=== PATIENT | female | born 1985 | race Caucasian/White ===

== ENCOUNTER 2019-04-25 03:15 | Inpatient (IN) | payer BC ==
[~2019-04-25] VITALS: Ht 170.2 cm; Wt 76.3 kg
[2019-04-28 08:10] VITALS: BP 139/87
== END 2019-04-28 16:19 | disposition home or self-care (01) | DRG 806 ==
LOC: LDIP 05:10 → 2NW 04-26 08:22
PROVIDERS: ADMIT Obstetrics & Gynecology; ATTEND Obstetrics & Gynecology
PROC: 10D07Z6 Extraction of Products of Conception, Vacuum, Via Natural or Artificial Opening (ICD-10-PCS; principal; 2019-04-26)
PROC: 10D17Z9 Manual Extraction of Products of Conception, Retained, Via Natural or Artificial Opening (ICD-10-PCS; 2019-04-26)
PROC: 0W8NXZZ Division of Female Perineum, External Approach (ICD-10-PCS; 2019-04-26)
DX: O76 Abnormality in fetal heart rate and rhythm complicating labor and delivery (principal); O99.12 Other diseases of the blood and blood-forming organs and certain disorders involving the immune mechanism complicating childbirth; Z37.0 Single live birth; D68.62 Lupus anticoagulant syndrome; O64.0XX0 Obstructed labor due to incomplete rotation of fetal head, not applicable or unspecified; M34.1 CR(E)ST syndrome; O75.89 Other specified complications of labor and delivery; Z3A.39 39 weeks gestation of pregnancy; Z88.8 Allergy status to other drugs, medicaments and biological substances
CPT/HCPCS: 36415; J7121; 80053; 81003; 82248; 82570; 82803; 84156; 84550; 85025; 86850; 86900; 88307; G0378; J0690; J2405; J3010; J2210; J2590; J7120

== ENCOUNTER 2020-11-30 09:42 | Inpatient (IN) | payer OTHER ==
[~2020-11-30] VITALS: Ht 170.2 cm; Wt 73.6 kg
[~2020-11-30 09:42] MED LIST: ASPI-963 PO; DOCU-131 PO; IBUP-1222 PO; OXYC1TAB14 PO; PREN-3 PO
[2020-11-30] MEDS ORDERED: LIDOCAINE 1%, 20ML ONE (09:58)
[2020-11-30] MEDS ORDERED: NEWBORN KIT ONE (09:58)
[2020-11-30] MEDS ORDERED: OXYTOCIN 30U/ 0.9% NaCL 500ML 500 ML ONE (09:58)
[2020-11-30] MEDS ORDERED: MISOPROSTOL 200 MCG TABLET ONE (09:58)
[2020-11-30] MEDS: LACTATED RINGERS 1,000 ML IV SCH ×3 (10:22→12:36)
[2020-11-30] MEDS ORDERED: ONDANSETRON 2MG/ML, 2ML IVPush PRN (10:30)
[2020-11-30] MEDS ORDERED: TERBUTALINE 1 MG/ML, 1ML IVPush PRN (10:30)
[2020-11-30] MEDS ORDERED: METOCLOPRAMIDE 5 MG/ML, 2ML IVPush PRN (10:30)
[2020-11-30] MEDS ORDERED: FENTANYL PF 100 MCG/2ML IV PRN (10:30)
[2020-11-30] MEDS ORDERED: OXYTOCIN 30U/ 0.9% NaCL 500ML 500 ML IV ONE (10:30)
[2020-11-30] MEDS ORDERED: D5%-LACTATED RINGERS 1,000 ML IV SCH (10:30)
[2020-11-30] MEDS ORDERED: FENTANYL PF 100 MCG/2ML IVPush PRN (10:30)
[2020-11-30] MEDS ORDERED: CALCIUM CARBONATE 500 MG TAB.CHEW PO PRN ×2 (10:30→19:00)
[2020-11-30] MEDS ORDERED: TERBUTALINE 1 MG/ML, 1ML SQ PRN (10:30)
[2020-11-30 10:42] LABS: BASOPHILS % (AUTO) 0 % (0-1); EOSINOPHILS % (AUTO) 1 % (1-7); LYMPHOCYTES % (AUTO) 10 % (22-44); MEAN CORPUSCULAR HEMOGLOBIN 31.8 pg (27.0-34.8); MEAN CORPUSCULAR HGB CONC 34.2 g/dL (32.4-35.8); MEAN PLATELET VOLUME 7.6 fL (7.4-10.4); MONOCYTES % (AUTO) 6 % (2-9); NEUTROPHILS % (AUTO) 83 % (42-75); PLATELET COUNT 182 x10^3/uL (130-400); RED BLOOD COUNT 4.25 x10^6/uL (3.82-5.3); RED CELL DISTRIBUTION WIDTH 13.4 % (9.6-15.2)
[2020-11-30 10:44] LABS: MD NO
[2020-11-30] MEDS ORDERED: FENTANYL/BUPIV./NS/PF 250 ML EPIDCONT ONE (12:45)
[2020-11-30] MEDS ORDERED: BUPIVACAINE 0.25% ONE (12:45)
[2020-11-30] MEDS ORDERED: EPHEDRINE 50 MG/ML, 1ML IVPush PRN (13:30)
[2020-11-30] MEDS ORDERED: FENTANYL/BUPIV./NS/PF 250 ML EPIDCONT SCH (13:30)
[2020-11-30] MEDS ORDERED: LACTATED RINGERS 1,000 ML IV SCH (13:30)
[2020-11-30] MEDS ORDERED: LACTATED RINGERS 1,000 ML IVBOLUS PRN (13:30)
[2020-11-30] MEDS ORDERED: OXYTOCIN 30U/ 0.9% NaCL 500ML 500 ML IV PRN (14:00)
[2020-11-30] MEDS ORDERED: SIMETHICONE 80 MG CHEW TAB PO PRN (19:00)
[2020-11-30] MEDS ORDERED: ACETAMINOPHEN 325 MG TABLET PO PRN (19:00)
[2020-11-30] MEDS ORDERED: MISOPROSTOL 200 MCG TABLET PR PRN (19:00)
[2020-11-30] MEDS ORDERED: CARBOPROST TROMETHAMINE 250 MCG/ML, 1ML IM PRN (19:00)
[2020-11-30] MEDS ORDERED: ONDANSETRON 2MG/ML, 2ML IV PRN (19:00)
[2020-11-30] MEDS ORDERED: METHYLERGONOVINE 0.2 MG/ML IM PRN (19:00)
[2020-11-30] MEDS ORDERED: HYDROcodone/APAP 5/325 TABLET PO PRN (19:00)
[2020-11-30] MEDS: IBUPROFEN 600 MG TABLET PO PRN (19:20)
[2020-11-30 19:21] VITALS: BP 121/59
[2020-11-30] MEDS: OXYTOCIN 30U/ 0.9% NaCL 500ML 500 ML IV SCH (19:21)
[2020-11-30] MEDS: HYDROcodone/APAP 5/325 TABLET PO PRN (22:16)
[2020-12-01] VITALS: BP 101/68
[2020-12-01] MEDS: IBUPROFEN 600 MG TABLET PO PRN ×3 (01:29→18:22)
[2020-12-01 02:52] LABS: BASOPHILS % (AUTO) 0 % (0-1); EOSINOPHILS % (AUTO) 0 % (1-7); LYMPHOCYTES % (AUTO) 8 % (22-44); MEAN CORPUSCULAR HEMOGLOBIN 32.3 pg (27.0-34.8); MEAN PLATELET VOLUME 7.4 fL (7.4-10.4); MONOCYTES % (AUTO) 5 % (2-9); NEUTROPHILS % (AUTO) 87 % (42-75); PLATELET COUNT 154 x10^3/uL (130-400); RED CELL DISTRIBUTION WIDTH 13.7 % (9.6-15.2)
[2020-12-01 02:53] LABS: MD NO
[2020-12-01] MEDS: OXYTOCIN 30U/ 0.9% NaCL 500ML 500 ML IV SCH ×2 (03:53→15:00)
[2020-12-01 04:15] VITALS: BP 112/67
[2020-12-01] MEDS: HYDROcodone/APAP 5/325 TABLET PO PRN ×3 (04:26→18:23)
[2020-12-01 06:33] VITALS: BP 137/87
[2020-12-01] MEDS: DOCUSATE 100 MG CAPSULE PO PRN ×2 (09:38→22:53)
[2020-12-01] MEDS: PRENATAL VIT/IRON/FA 1 EACH TABLET PO SCH (09:38)
[2020-12-01 13:20] VITALS: BP 107/70
[2020-12-01 17:28] VITALS: BP 100/65
[2020-12-01 20:50] VITALS: BP 104/68
[2020-12-02] MEDS: OXYTOCIN 30U/ 0.9% NaCL 500ML 500 ML IV SCH (01:00)
[2020-12-02] MEDS: IBUPROFEN 600 MG TABLET PO PRN ×2 (02:59→09:34)
[2020-12-02] MEDS: HYDROcodone/APAP 5/325 TABLET PO PRN ×2 (05:11→09:35)
[2020-12-02] MEDS ORDERED: HYDR-1067 PO (07:24)
[2020-12-02 08:00] VITALS: BP 107/66
[2020-12-02] MEDS: PRENATAL VIT/IRON/FA 1 EACH TABLET PO SCH (09:34)
[2020-12-02] MEDS: DOCUSATE 100 MG CAPSULE PO PRN (09:34)
== END 2020-12-02 11:30 | disposition home or self-care (01) | DRG 807 ==
LOC: LDOP 09:42 → LDIP 10:11 → 2NW 21:11
PROVIDERS: ADMIT Obstetrics & Gynecology; ATTEND Obstetrics & Gynecology
PROC: 0KQM0ZZ Repair Perineum Muscle, Open Approach (ICD-10-PCS; principal; 2020-11-30)
PROC: 10E0XZZ Delivery of Products of Conception, External Approach (ICD-10-PCS; 2020-11-30)
PROC: 3E0R3BZ Introduction of Anesthetic Agent into Spinal Canal, Percutaneous Approach (ICD-10-PCS; 2020-11-30)
PROC: 00HU33Z Insertion of Infusion Device into Spinal Canal, Percutaneous Approach (ICD-10-PCS; 2020-11-30)
DX: O62.0 Primary inadequate contractions (principal); Z37.0 Single live birth; Z3A.37 37 weeks gestation of pregnancy; O70.1 Second degree perineal laceration during delivery; Z20.822 Contact with and (suspected) exposure to COVID-19
CPT/HCPCS: 36415; 85025; 86592; 86850; 86900; 87340; 87635; G0378; J2590; J7120; J7121